=== PATIENT | female | born 1935 | race African-American/Black ===

== ENCOUNTER 2021-07-13 10:23 | Emergency (ER) | payer OTHER ==
[~2021-07-13] VITALS: Ht 172.7 cm; Wt 102.0 kg
[2021-07-13 12:09] LABS: CHLORIDE 105 mEq/L (98-107)
[2021-07-13 12:23] LABS: BASOPHILS % 1.3 % (0.0-2.0); EOSINOPHILS % 0.7 % (0.0-5.0); HEMATOCRIT. 36.5 % (36.0-48.0); HEMOGLOBIN. 12.1 g/dL (12.0-16.0); LYMPHOCYTES % 22.1 % (20.0-50.0); MEAN CORPUSCULAR HEMOGLOBIN 28.4 pg (28.0-32.0); MEAN CORPUSCULAR VOLUME 85.6 fL (81.0-99.0); MEAN PLATELET VOLUME 9.3 fl (7.4-10.4); MONOCYTES % 5.4 % (2.0-8.0); NEUTROPHILS % 70.5 % (40.0-76.0); PLATELET 180 x1000/uL (130-400); RED BLOOD CELL COUNT 4.26 mill/uL (4.2-5.4); RED CELL DISTRIBUTION WIDTH 14.9 % (11.6-14.6)
[2021-07-13] MEDS ORDERED: KETOROLAC 15MG/ML VIAL IV ONE (13:00)
[2021-07-13 13:14] VITALS: BP 150/69
== END 2021-07-13 13:50 | disposition home or self-care (01) ==
LOC: ER 10:55
DX: R06.02 Shortness of breath (principal); E78.00 Pure hypercholesterolemia, unspecified; I10 Essential (primary) hypertension; Z88.0 Allergy status to penicillin
CPT/HCPCS: 36415; 71045; 80053; 83880; 84484; 85025; 93005; 96374; 99291; J1885

== ENCOUNTER 2023-01-08 09:57 | Emergency (ER) | payer OTHER ==
[~2023-01-08] VITALS: Ht 167.6 cm; Wt 95.0 kg
[2023-01-08 09:59] VITALS: O2SAT 97
[2023-01-08] MEDS ORDERED: ONDANSETRON HCL 4MG/2ML INJ IV STA (10:05)
[2023-01-08] MEDS ORDERED: MORPHINE SULFATE 4 MG/ML CPJ (NOT FOR IM USE) IV STA (10:05)
[2023-01-08] MEDS ORDERED: NITROGLYCERIN 0.4MG TABLET SL SL PRN (10:15)
[2023-01-08 10:53] LABS: BASOPHILS % 1.1 % (0.0-2.0); EOSINOPHILS % 0.5 % (0.0-5.0); HEMATOCRIT. 37.6 % (36.0-48.0); HEMOGLOBIN. 12.4 g/dL (12.0-16.0); LYMPHOCYTES % 22.4 % (20.0-50.0); MEAN CORPUSCULAR HEMOGLOBIN 27.5 pg (28.0-32.0); MEAN CORPUSCULAR HGB CONC 32.9 g/dL (31.0-37.0); MEAN CORPUSCULAR VOLUME 83.6 fL (81.0-99.0); MEAN PLATELET VOLUME 8.8 fl (7.4-10.4); MONOCYTES % 6.3 % (2.0-8.0); NEUTROPHILS % 69.7 % (40.0-76.0); PLATELET 167 x1000/uL (130-400); RED CELL DISTRIBUTION WIDTH 16.3 % (11.6-14.6); WHITE BLOOD COUNT 6.8 x1000/uL (4.5-11.0)
[2023-01-08 11:04] LABS: CHLORIDE 107 mEq/L (98-107); INDEX HEMOLYSI 1 (1-3); INDEX ICTERIC 1 (1-4); INDEX LIPEMIC 1 (1-3); POTASSIUM 4.6 mEq/L (3.5-5.1); SODIUM 138 mEq/L (136-145)
[2023-01-08 11:14] LABS: ALANINE AMINOTRANSFERASE 45 IU/L (13-61); ALBUMIN 3.7 g/dL (3.4-5.0); ASPARTATE AMINOTRANSFERASE 28 IU/L (15-37); BILIRUBIN TOTAL 0.2 mg/dL (0.1-1.0); CALCIUM 9.3 mg/dL (8.5-10.1); CARBON DIOXIDE 26 mEq/L (21-32); CREATININE 1.7 mg/dL (0.6-1.3); GLUCOSE 98 mg/dL (70-105); NT PRO B-TYPE NATRIURETIC PEP 1067 pg/mL (5-125); PROTEIN TOTAL 7.9 g/dL (6.0-8.3); TROPONIN I HIGH SENSITIVITY 20 ng/L (<54); UREA NITROGEN BLOOD 29 mg/dL (7-21)
[2023-01-08] MEDS ORDERED: MORPHINE SULFATE 4 MG/ML CPJ (NOT FOR IM USE) IV ONE (12:00)
[2023-01-08 14:24] VITALS: BP 166/72; PULSE 76; RESP 12; TEMP 97.8
== END 2023-01-08 14:46 | disposition short-term general hospital (02) ==
LOC: ER 10:37 → EDBEDREQ 11:56 → CANBEDREQ 12:47 → ER 14:46
DX: R07.89 Other chest pain (principal); I10 Essential (primary) hypertension; E78.00 Pure hypercholesterolemia, unspecified; Z88.0 Allergy status to penicillin; Z98.890 Other specified postprocedural states; Z20.822 Contact with and (suspected) exposure to COVID-19
CPT/HCPCS: 99285; 96374; 71045; 96375; 87426; 80053; 83880; 85025; 84484; 36415; 93005; 96376; J2405; J2270; C9803